=== PATIENT | male | born 1970 | race Caucasian/White ===

== ENCOUNTER 2020-09-28 12:57 | Emergency (ER) | payer MEDICARE, MEDICAID ==
[~2020-09-28] VITALS: Ht 177.8 cm; Wt 82.0 kg
[2020-09-28 13:01] VITALS: BP 100/66
--- NOTE | 2020-09-28 13:07 | NUR ---
PT BIB [facility]. PT STATED THAT HIS AICD WENT OFF TWICE THIS MORNING WHILE HAVING SEXUAL INTERCOURSE. PT STATED THAT HE HAD AN ME 3 YEARS AGO AND HAD AICD PLACED DURING THAT HOSPITAL STAY. BLOOD GLUCOSE OBTAINED BY [facility] WAS [phone]. PT STATED THAT HE IS SUPPOSED TO TAKE METFORMIN, BUT HASNT TAKEN IT IN MONTHS BECAUSE IT WAS CAUSING GI DISTRESS. PT DENIES ANY CURRENT CHEST PAIN OR SOB AT THIS TIME.
[2020-09-28 13:56] LABS: BASOPHILS % (AUTO) 1 % (0-1); EOSINOPHILS % (AUTO) 2 % (1-7); LYMPHOCYTES % (AUTO) 30 % (22-44); MEAN CORPUSCULAR HEMOGLOBIN 30.6 pg (27.5-34.5); MEAN CORPUSCULAR HGB CONC 34.1 g/dL (33.2-36.2); MEAN PLATELET VOLUME 7.2 fL (7.4-10.4); MONOCYTES % (AUTO) 8 % (2-9); NEUTROPHILS % (AUTO) 59 % (42-75); PLATELET COUNT 276 x10^3/uL (130-400); RED BLOOD COUNT 4.94 x10^6/uL (4.38-5.82); RED CELL DISTRIBUTION WIDTH 13.8 % (9.4-14.8)
[2020-09-28 13:59] LABS: MD NO
[2020-09-28] MEDS ORDERED: PLEASE ENTER ALLERGIES MC SCH (14:00)
[2020-09-28 14:04] LABS: ALBUMIN 3.7 g/dL (3.4-5.0); ANION GAP 7 mmol/L (5-15); CALCIUM 8.9 mg/dL (8.5-10.1); CHLORIDE 105 mmol/L (98-107)
--- NOTE | 2020-09-28 14:09 | NUR ---
RN HEARD PT YELLING AT SIGNIFICANT OTHER IN ROOM. RN WENT TO CHECK ON PT AND PT STATED THAT HE NEEDS TO THE LEAVE THE HOSPITAL. PT EDUCATED ON RISKS OF LEAVING HOSPITAL AND ASKED IF HE WOULD BE WILLING TO STAY UNTIL LABS RESULTED AND THE PHYSICIAN COULD TALK TO HIM. PT GOT ANGRY AND STARTED YELLING AT RN THAT HE NEEDS TO LEAVE NOW. RN ABLE TO CALM PT DOWN AND HAVE HIM SIT TO TAKE OUT IV AND SIGN AMA FORM.
[2020-09-28 14:10] LABS: ALANINE AMINOTRANSFERASE 65 U/L (12-78); ALKALINE PHOSPHATASE 224 U/L (45-117); BILIRUBIN,TOTAL 0.5 mg/dL (0.2-1.0); CREATININE 0.97 mg/dL (0.7-1.3); TOTAL PROTEIN 7.1 g/dL (6.4-8.2); TROPONIN I < 0.015 ng/mL (0.000-0.045)
[2020-09-28] MEDS ORDERED: SODIUM CHLORIDE FLUSH 10ML SYR IVF ONE (14:30)
[2020-09-28] MEDS ORDERED: SODIUM CHLORIDE 0.9% 1,000ML IVBOLUS ONE (14:30)
== END 2020-09-28 14:23 | disposition left against medical advice (07) ==
LOC: ED 13:00
DX: R07.2 Precordial pain (principal); R00.0 Tachycardia, unspecified; I10 Essential (primary) hypertension; E11.9 Type 2 diabetes mellitus without complications; I48.91 Unspecified atrial fibrillation
CPT/HCPCS: 36415; 71045; 80053; 84484; 85025; 93005; 99285; J7030